=== PATIENT | female | born 1950 | race Caucasian/White ===

== ENCOUNTER 2017-11-08 14:11 | Emergency (ER) | payer MEDICARE, OTHER ==
[~2017-11-08] VITALS: Ht 162.6 cm; Wt 85.1 kg
[~2017-11-08 14:11] MED LIST: HYDR-3580 PO; Z.0.NO CURRENT MEDS; ZITH500T PO
[2017-11-08 14:16] VITALS: BP 156/72; PULSE 74; RESP 16; TEMP 98.3; O2SAT 96
[2017-11-08] MEDS ORDERED: GABA300C5 PO (14:24)
--- NOTE | 2017-11-08 14:36 | PD ---
HPI Chief Complaint: Injury Time Seen by Provider: 14:35 Travel History International Travel<30 days: No Contact w/Intl Traveler<30days: No Traveled to known affect area: No History of Present Illness HPI 67-year-old female presents to the verge department with pain, swelling, and ecchymosis to the left medial elbow and proximal forearm after a fall 5 days ago. Patient states she is unable to extend the elbow fully. She denies numbness or tingling. She denies pain in the hand or wrist. She denies pain in the left shoulder. Pain is worse with certain movements. This was a slip and fall without loss of consciousness or other injury. Pain is currently about a 6 out of 10. She is allergic to wheat but no medications. PFSH Past Medical History Diminished Hearing: No Neurologic: Yes (neropathy of feet) Immunizations Current: No Tetanus Vaccination: Unknown Influenza Vaccination: Yes ?: Not Menopausal: Yes Social History Alcohol Use: No Tobacco Use: No Substance Use: No Allergies-Medications (Allergen,Severity, Reaction): Coded Allergies: wheat (Unverified Allergy, Severe, SINUS INFLAMMATION, 11/08/17) Reported Meds & Prescriptions Reported Meds & Active Scripts Active Reported Gabapentin 300 Mg Cap 300 Mg PO BID Review of Systems General / Constitutional: No: Fever Eyes: No: Visual changes HENT: No: Headaches Cardiovascular: No: Chest Pain or Discomfort Respiratory: No: Shortness of Breath Gastrointestinal: No: Abdominal Pain Genitourinary: No: Dysuria Musculoskeletal: Positive: Arthralgias, Limited ROM (see history of present illness), Pain Skin: No Rash Neurologic: No: Weakness Psychiatric: No: Depression Endocrine: No: Polydipsia Hematologic/Lymphatic: No: Easy Bruising Physical Exam Narrative GENERAL: Patient appears in no acute distress. SKIN: Warm and dry. Normal color. Normal turgor. Patient has extensive old appearing ecchymosis from the medial elbow extending down into the left volar forearm two [address] to the wrist. There is mild erythema and warmth as well. There is no abrasions. HEAD: Atraumatic. Normocephalic. EYES: Pupils equal and round. No scleral icterus. No injection or drainage. ENT: No nasal bleeding or discharge. Mucous membranes pink and moist. Pharynx is clear. Airway is patent. NECK: Trachea midline. Supple and nontender. CARDIOVASCULAR: Regular rate and rhythm. RESPIRATORY: No accessory muscle use. Clear to auscultation. Breath sounds equal bilaterally. MUSCULOSKELETAL: Extremities without clubbing, cyanosis, or edema. No obvious deformities. Patient has limited extension of the left elbow secondary to discomfort. 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 Flexion appears normal. Patient has mildly limited rotation and flexion of the wrist secondary to discomfort. NEUROLOGICAL: Awake and alert. No obvious cranial nerve deficits. Motor grossly within normal limits. Five out of 5 muscle strength in the arms and legs. Normal speech. PSYCHIATRIC: Appropriate mood and affect; insight and judgment normal. Data Data Last Documented VS Vital Signs Date Time Temp Pulse Resp B/P (MAP) Pulse Ox O2 Delivery O2 Flow Rate FiO2 11/08/17 14:16 98.3 74 16 156/72 (100) 96 Orders Orders Elbow, Complete (4 Vws) (11/08/17 14:50) Ice/Cold Pack (11/08/17 14:50) MDM Medical Decision Making Medical Screen Exam Complete: Yes Emergency Medical Condition: Yes Differential Diagnosis Trip and fall. Left elbow contusion. Ecchymosis. Fracture. Narrative Course X-rays of the left elbow are ordered. X-ray shows no acute fracture dislocation per radiologist. Billy wrap will be applied to the area for comfort. Patient is given ibuprofen 600 mg 3 times a day #30. Patient should use heat followed by ice frequently. Patient should follow with her primary care physician as needed. Patient should return with worsening pain, numbness, or weakness as discussed. Diagnosis Primary Impression: Contusion of left elbow, initial encounter Referrals: Primary Care Physician call for appointment Patient Instructions: Contusion in Adults (ED), General Instructions Additional Instructions: X-ray shows no acute fracture dislocation per radiologist. Billy wrap will be applied to the area for comfort. Patient is given ibuprofen 600 mg 3 times a day #30. Patient should use heat followed by ice frequently. Patient should follow with her primary care physician as needed. Patient should return with worsening pain, numbness, or weakness as discussed. Med/Other Pt SpecificInfo: Prescription(s) given Scripts Ibuprofen (Ibuprofen) 600 Mg Tab 600 MG PO Q8H Y for PAIN, #30 TAB 0 Refills Prov: Jaison Hunter MD 11/08/17 Disposition: 01 DISCHARGE HOME Condition: Stable Rajendra Haas Nov 08, 2017 14:36
--- NOTE | 2017-11-08 15:18 | RADRPT ---
EXAM DATE/TIME: 11/08/2017 14:53 [facility] COMPARISON: No previous studies available for comparison. INDICATIONS : Left elbow pain post fall. MEDICAL HISTORY : None. SURGICAL HISTORY : None. ENCOUNTER: Initial ACUITY: 3 days PAIN SCORE: LOCATION: Left medial elbow FINDINGS: Four views of the left elbow demonstrate no fracture or dislocation. No joint effusion is visualized. No radiopaque foreign body is identified. There is subcutaneous edema medially. CONCLUSION: No fracture or acute abnormality is identified. Jose Darnell MD on November 08, 2017 at 15:13 Board Certified Radiologist. This report was verified electronically.
[2017-11-08] MEDS ORDERED: IBUP-232 PO (15:21)
== END 2017-11-08 16:16 | disposition home or self-care (01) ==
LOC: PHEFT 14:11
DX: S50.02XA Contusion of left elbow, initial encounter (principal); W01.0XXA Fall on same level from slipping, tripping and stumbling without subsequent striking against object, initial encounter
CPT/HCPCS: 73080; 99283